=== PATIENT | female | born 1970 | race Two or more races ===

== ENCOUNTER 2025-04-28 17:48 | Inpatient (IN) | payer MEDICAID, OTHER ==
[~2025-04-28] VITALS: Ht 154.9 cm; Wt 70.8 kg
--- NOTE | 2025-04-28 18:55 | ED.PDOC ---
History of Present Illness HPI Comments 54-year-old female who is Vietnamese-speaking presents to the ER with family member who translates and with a prior surgical history of colostomy on January 01, 2025 due from diverticulitis, cholecystectomy, , tubal ligation, bilateral hand surgery in the chief complaint of abdominal pain. Family member reports on having had 9/10 abdominal pain around the colostomy bag associated with back pain, chills and nausea. Family member notes on going to [facility] for similar symptoms on Sunday of 04/25/2025. Denies any other symptoms at this time. Denies fever, /V/D, SOB, CP. No other associated symptoms, modifiers, recent injuries or sick contacts present at this time. Chief Complaint: Abdominal Pain Time Seen by MD: 18:45 Reviewed Notes: Nurses Notes, Medications, Allergies Allergies: Coded Allergies: NO KNOWN ALLERGIES (Unverified , 04/28/25) Information Source: Patient, Relative Mode of Arrival: Ambulatory Severity: Moderate Timing: Came on: Gradually Duration: Since onset Prehospital treatment: None Past Medical History PAST MEDICAL HISTORY: Denies Surgical History: Cholecystectomy, Tubal Ligation Surgical History (Other): Colostomy bag placed on January 01, 2025 due from diverticulitis OIL FIELD PUMPER History: No Pertinent OIL FIELD PUMPER History Family History Family History: Reviewed,noncontributory to illness, Unknown Social History Smoker: Non-Smoker Alcohol: Denies ETOH Use Drugs: Denies Drug Use Lives In: Home Constitutional: reports: chills; denies: diaphoresis, fatigue, fever, malaise, sweats, weakness, others EENTM: denies: blurred vision, double vision, ear bleeding, ear discharge, ear drainage, ear pain, ear ringing, eye pain, eye redness, hearing loss, mouth pain, mouth swelling, nasal discharge, nose bleeding, nose congestion, nose pain, photophobia, tearing, throat pain, throat swelling, voice changes, others Respiratory: denies: cough, hemoptysis, orthopnea, SOB at rest, shortness of breath, SOB with excertion, stridor, wheezing, others Cardiovascular: denies: chest pain, dizzy spells, diaphoresis, Dyspnea on exertion, edema, irregular heart beat, left arm pain, lightheadedness, palpitations, PND, syncope, others Gastrointestinal: reports: abdominal pain, nausea; denies: abdomen distended, blood streaked bowels, constipated, diarrhea, dysphagia, difficulty swallowing, hematemesis, melena, poor appetite, poor fluid intake, rectal bleeding, rectal pain, vomiting, others Genitourinary: denies: abnormal vagina bleeding, burning, dyspareunia, dysuria, flank pain, frequency, hematuria, incontinence, pain, , vagina discharge, urgency, others Neurological: denies: dizziness, fainting, headache, left sided numbness, left sided weakness, numbness, paresthesia, pre-existing deficit, right sided numbness, right sided weakness, seizure, speech problems, tingling, tremors, weakness, others Musculoskeletal: denies: back pain, gout, joint pain, joint swelling, muscle pain, muscle stiffness, neck pain, others Integumetry: denies: bruises, change in color, change in hair/nails, dryness, laceration, lesions, lumps, rash, wounds, others Allergic/Immunocompromised: denies: Difficulty Healing, Frequent Infections, Hives, Itching, others Hematologic/Lymphatic: denies: anemia, blood clots, easy bleeding, easy br uising, swollen glands, others Endocrine: denies: excessive hunger, excessive sweating, excessive thirst, excessive urination, flushing, intolerance to cold, intolerance to heat, unexplained weight gain, unexplained weight loss, others Psychiatric: denies: anxiety, bipolar disorder, depression, hopeless, panic disorder, schizophrenia, sleepless, suicidal, others All Other Systems: Reviewed and Negative Physical Exam General Appearance: Moderate Distress HEENT: Normal ENT Inspection, Pharynx Normal, TMs Normal Neck: Full Range of Motion, Non-Tender, Normal, Normal Inspection Respiratory: Chest Non-Tender, Lungs Clear, No Accessory Muscle Use, No Respiratory Distress, Normal Breath Sounds Cardiovascular: No Edema, No JVD, No Murmur, No Gallop, Normal Peripheral Pulses, Regular Rate/Rhythm Breast Exam: Deferred Gastrointestinal: LLQ, No Organomegaly, No Pulsatile Mass, Normal Bowel Sounds, Soft, Tenderness, Other (Colostomy bag in place) Genitalia: Deferred Pelvic: Deferred Rectal: Deferred Extremities: No calf tenderness, Normal capillary refill, Normal inspection, Normal range of motion, Non-tender, No pedal edema Musculoskeletal : Apperance: Normal Neurologic: Alert, maker up folding II-XII nml as Tested, No Motor Deficits, Normal Affect, Normal Mood, No Sensory Deficits Cerebellar Function: Normal Reflexes: Normal Skin: Dry, Normal Color, Warm Lymphatic: No Adenopathy Was a procedure done? Was a procedure done?: No Differential Dx Considerations may include: Diverticulitis, generalized weakness, colitis, abdominal pain X-Ray, Labs, Meds, VS Vital Signs Date Time Temp Pulse Resp B/P (MAP) Pulse Ox O2 Delivery O2 Flow Rate FiO2 04/28/25 17:51 98.7 87 19 121/85 98 98.7 Lab Test 04/28/25 19:15 Range/Units White Blood Count 6.2 4.4-10.8 10^3/uL Red Blood Count 5.14 4.0-5.20 10^6/uL Hemoglobin 14.0 12.2-16.2 g/dL Hematocrit 42.0 36.0-46.0 % Mean Corpuscular Volume 81.8 80.0-100.0 fL Mean Corpuscular Hemoglobin 27.2 L 28.0-32.0 pg Mean Corpuscular Hemoglobin Concent 33.3 32.0-36.0 g/dL Red Cell Distribution Width 17.7 H 11.8-14.3 % Platelet Count 327 140-450 10^3/uL Mean Platelet Volume 7.5 6.9-10.8 fL Neutrophils (%) (Auto) 52.1 37.0-80.0 % Lymphocytes (%) (Auto) 36.8 10.0-50.0 % Monocytes (%) (Auto) 7.4 0.0-12.0 % Eosinophils (%) (Auto) 2.9 0.0-7.0 % Basophils (%) (Auto) 0.8 0.0-2.0 % Neutrophils # (Auto) 3.2 1.6-8.6 10 ^3/uL Lymphocytes # (Auto) 2.3 0.4-5.4 10 ^3/uL Monocytes # (Auto) 0.5 0-1.3 10 ^3/uL Eosinophils # (Auto) 0.2 0-0.8 10 ^3/uL Basophils # (Auto) 0 0-0.2 10 ^3/uL Nucleated Red Blood Cells 0.1 % Sodium Level 142 136-145 mmol/L Potassium Level 3.8 3.5-5.1 mmol/L Chloride Level 104 98-107 mmol/L Carbon Dioxide Level 30 20-31 mmol/L Anion Gap 8 5-15 Blood Urea Nitrogen 10 9-23 mg/dL Creatinine 0.57 0.550-1.02 mg/dL Glomerular Filtration Rate Calc 107 >90 mL/min BUN/Creatinine Ratio 17.5 10.0-20.0 Serum Glucose 104 74-106 mg/dL Calcium Level 9.4 8.7-10.4 mg/dL Total Bilirubin 0.3 0.2-1.0 mg/dL Aspartate Amino Transferase (AST) 23 13-40 U/L Alanine Aminotransferase (ALT) 14 7-40 U/L Alkaline Phosphatase 97 46-116 U/L Total Protein 7.4 5.7-8.2 g/dL Albumin 4.3 3.2-4.8 g/dL Lipase 46 12-53 U/L IMPRESSION: No acute abdominal or pelvic findings. Large left lower quadrant parastomal hernia with no obstruction or inflammatory changes. Radiation optimization: All CT scans at this facility use at least one of these dose optimization techniques: automated exposure control mA and/or kV adjustment per patient size (includes targeted exams where dose is matched to clinical indication) or iterative reconstruction. The patient is being admitted at this time. As a CBC and chemistry panel which are within normal limits The patient had an IV Hep-Lock established The patient was given morphine and Zofran for the pain Images Reviewed?: Images reviewed and evaluated by me Time of 1ST Reevaluation: 19:15 Reevaluation 1ST: Unchanged Patient Education/Counseling: Diagnosis, Treatment, Prognosis Family Education/Counseling: Diagnosis, Treatment, Prognosis SEPSIS Sepsis Screen Date sepsis recognized/suspect: Apr 28, 2025 Time Sepsis recognized/suspect: 1753 Recent Procedure: No On Antibiotic Therapy: No Respiratory Rate >20: No Heart Rate >90: No Temp<36 C (96.8 F) or >38.3 C: No SBP <90 or MAP <65 mmHG: No New Acute Mental Status Change: No Is the patient on CPAP, BIPAP,: No Physician Orders Urinalysis (04/28/25 18:48) Ct Ab Pel Wo Con-No Oral Or Iv (04/28/25 18:48) Heplock Iv (04/28/25 18:48) Vital Signs Date Time Temp Pulse Resp B/P (MAP) Pulse Ox O2 Delivery O2 Flow Rate FiO2 04/28/25 17:51 98.7 87 19 121/85 98 98.7 Laboratory Tests Test 04/28/25 19:15 White Blood Count 6.2 10^3/uL (4.4-10.8) Departure 1 Departure Time of Disposition: 20:34 Impression: Primary Impression: Intractable abdominal pain Disposition: ADMITTED INPATIENT Admit to: Med Surg Condition: Fair Critical Care Note Critical Care Time?: No Stability Stability form required: Yes Unstable for transfer: ED Physician Assesment (Clinical assesment) Heart Score Heart Score: Heart Score Response (Comments) Value History N/A 0 EKG N/A 0 Age N/A 0 Risk Factors N/A 0 Troponin N/A 0 Total 0 I personally scribed for ANUEL WILSON MD ([email or web address]) on 04/28/25 at 18:55. Electronically submitted by Ken Jimenez ([employer]). I personally scribed for ANUEL WILSON MD ([email or web address]) on 04/28/25 at 19:28. Electronically submitted by Kne Jimenez ([employer]). ANUEL WILSON MD Apr 28, 2025 18:55
--- NOTE | 2025-04-28 19:20 | DVH ---
Exam: CT CT AB PEL WO CON-NO ORAL OR IV History: pain Comparison Study: None Technique: Multidetector spiral CT of the abdomen was performed from lung bases to pubic symphysis. Imaging was performed without IV contrast. Axial, coronal and sagittal multiplanar reformats were obtained from the axial data set by the technologist. Radiation Dose : 1. Abdomen/Pelvis: CTDIvol 6.86 mGy, DLP 3347.61 mGy*cm. Findings: Evaluation of solid organs is limited due to lack of intravenous contrast use. Lung Bases: No acute or significant lung base finding. Normal heart size. No pleural or pericardial effusion. Liver: The liver is normal in size. No focal lesions. Gallbladder and Biliary Tree: Gallbladder is surgically absent. Spleen: Unremarkable Pancreas: The pancreas is grossly normal in appearance. Adrenal Glands: Unremarkable Kidneys: Kidneys are grossly normal without calculi or hydronephrosis. Bladder: Grossly unremarkable for degree of distention. Bowel: Large left lower quadrant parastomal hernia containing a few loops of nonobstructed small bowel. Left lower quadrant colostomy. Sigmoid remnant appears unremarkable. No obstruction. No inflammatory changes. Appendix is normal. Ascites: Absent Lymphadenopathy: No mesenteric, retroperitoneal or periportal lymphadenopathy. Abdominal Wall and Mesentery: Unremarkable. Vasculature: The visualized abdominal aorta is normal in size and caliber. Evaluation of abdominal and pelvic vessels is limited due to lack of intravenous contrast. Pelvic Organs: Unremarkable Musculoskeletal: No aggressive focal bony lesions, acute fractures or dislocation. IMPRESSION: No acute abdominal or pelvic findings. Large left lower quadrant parastomal hernia with no obstruction or inflammatory changes. Radiation optimization: All CT scans at this facility use at least one of these dose optimization techniques: automated exposure control mA and/or kV adjustment per patient size (includes targeted exams where dose is matched to clinical indication) or iterative reconstruction.
[2025-04-28 19:37] LABS: Hematocrit 42.0 % (36.0-46.0); Hemoglobin 14.0 g/dL (12.2-16.2); Mean Corpuscular Hemoglobin 27.2 pg (28.0-32.0); Mean Corpuscular Volume 81.8 fL (80.0-100.0); Nucleated Red Blood Cells % 0.1 %
[2025-04-28 19:59] LABS: Alanine Aminotransferase 14 U/L (7-40); Albumin 4.3 g/dL (3.2-4.8); Alkaline Phosphatase 97 U/L (46-116); Anion Gap 8 (5-15); BUN/Creatinine Ratio 17.5 (10.0-20.0); Blood Urea Nitrogen 10 mg/dL (9-23); Calcium 9.4 mg/dL (8.7-10.4); Carbon Dioxide 30 mmol/L (20-31); Chloride 104 mmol/L (98-107); Glucose 104 mg/dL (74-106); Lipase 46 U/L (12-53); Potassium 3.8 mmol/L (3.5-5.1); Sodium 142 mmol/L (136-145); Total Protein 7.4 g/dL (5.7-8.2)
[2025-04-28 20:06] LABS: Bilirubin, Total 0.3 mg/dL (0.2-1.0)
[2025-04-28] MEDS ORDERED: ONDANSETRON HCL 4 MG/2 ML VIAL IV PRN (20:30)
[2025-04-28] MEDS ORDERED: MORPHINE SULFATE INJ 2 MG/ml SYRG IV PRN (20:30)
--- NOTE | 2025-04-28 21:09 | DVHHPRES ---
History of Present Illness Resident Creating Document: CARLOS HAMILTON RESIDENT History of Present Illness This is a 54-year-old female with past medical history of GERD, colostomy January 01 2025 in [facility] due to complicated acute diverticulitis, cholecystectomy, , tubal ligation, bilateral hand surgery came to ER with a complaint of abdominal pain for 1 week which is worsen today. Abdominal pain initially in epigastric region then continuous pain in colostomy site which is 7/10 intensity, localized, no radiation, no aggravating or relieving factor. Patient went to [facility] last week and discharged with famotidine and omeprazole after lab and image done. Patient stated, changes colostomy bag daily and no constipation or blood mixed with stool noted. Abdominal pain associated with back pain and headache but no nausea, vomiting, dysuria, hematuria, fever or any other acute distress. Past medical history: colostomy January 01 2025 due from diverticulitis, cholecystectomy, , tubal ligation, bilateral hand surgery. Surgical history: As above Personal history: Denies any smoking, illicit drug use. Use ETOH occasionally Social history: Lives with family Allergy: No known allergy PCP: Kane Jennings([phone]) Home medication: Famotidine and omeprazole. Review of Systems Constitutional: Yes: Chills, Sweats, Malaise; No: Fever, Weakness, Other Eyes: No: Pain, Vision change, Conjunctivae inflammation, Eyelid inflammation, Other, Redness ENT: No: Ear pain, Ear discharge, Nose pain, Nose discharge, Nose congestion, Mouth pain, Mouth swelling, Throat pain, Throat swelling, Other Respiratory: No: Cough, Dry, Shortness of breath, SOB with excertion, Wheezing, Hemoptysis, Pleuritic Pain, Sputum, Wheezing, Other Cardiovascular: No: Chest Pain, Palpitations, Orthopnea, Paroxysmal Noc. Dyspnea, Edema, Lt Headedness, Other Gastrointestinal: Nausea; No: Vomiting, Abdominal Pain, Diarrhea, Constipation, Melena, Hematochezia, Other Genitourinary: No Dysuria, No Frequency, No Incontinence, No Hematuria, No Retention, No Other Musculoskeletal: back pain; No: other, neck pain, shoulder pain, arm pain, hand pain, leg pain, foot pain Skin: No: Rash, Lesions, Jaundice, Bruising, Other Neurological: No: Weakness, Numbness, Incoordination, Change in speech, Confusion, Seizures, Other Allergies: Coded Allergies: NO KNOWN ALLERGIES (Unverified , 04/28/25) Exam Vital Signs Vital Signs Date Time Temp Pulse Resp B/P (MAP) Pulse Ox O2 Delivery O2 Flow Rate FiO2 04/28/25 20:50 99.0 88 16 132/93 (106) 99 99.0 General Appearance: Alert, Oriented X3, Cooperative, mild distress HEENT: Atraumatic, PERRLA, EOMI, Mucous membr. moist/pink Respiratory: Clear to auscultation, Normal air movement Cardiovascular: Regular rate, Normal S1, Normal S2, No murmurs Abdominal: Normal bowel sounds, Soft, Other (Abdomen tender on deep palpation, colostomy bag in place.) Extremities: No clubbing, No cyanosis, No edema, Normal pulses Skin: No rashes, No breakdown Neuro: Normal gait, Normal speech, Strength at 5/5 X4 ext, Sensation intact, Cranial nerves 3-12 NL Labs/Xrays Labs Test 04/28/25 19:15 Range/Units White Blood Count 6.2 4.4-10.8 10^3/uL Red Blood Count 5.14 4.0-5.20 10^6/uL Hemoglobin 14.0 12.2-16.2 g/dL Hematocrit 42.0 36.0-46.0 % Mean Corpuscular Volume 81.8 80.0-100.0 fL Mean Corpuscular Hemoglobin 27.2 L 28.0-32.0 pg Mean Corpuscular Hemoglobin Concent 33.3 32.0-36.0 g/dL Red Cell Distribution Width 17.7 H 11.8-14.3 % Platelet Count 327 140-450 10^3/uL Mean Platelet Volume 7.5 6.9-10.8 fL Neutrophils (%) (Auto) 52.1 37.0-80.0 % Lymphocytes (%) (Auto) 36.8 10.0-50.0 % Monocytes (%) (Auto) 7.4 0.0-12.0 % Eosinophils (%) (Auto) 2.9 0.0-7.0 % Basophils (%) (Auto) 0.8 0.0-2.0 % Neutrophils # (Auto) 3.2 1.6-8.6 10 ^3/uL Lymphocytes # (Auto) 2.3 0.4-5.4 10 ^3/uL Monocytes # (Auto) 0.5 0-1.3 10 ^3/uL Eosinophils # (Auto) 0.2 0-0.8 10 ^3/uL Basophils # (Auto) 0 0-0.2 10 ^3/uL Nucleated Red Blood Cells 0.1 % Sodium Level 142 136-145 mmol/L Potassium Level 3.8 3.5-5.1 mmol/L Chloride Level 104 98-107 mmol/L Carbon Dioxide Level 30 20-31 mmol/L Anion Gap 8 5-15 Blood Urea Nitrogen 10 9-23 mg/dL Creatinine 0.57 0.550-1.02 mg/dL Glomerular Filtration Rate Calc 107 >90 mL/min BUN/Creatinine Ratio 17.5 10.0-20.0 Serum Glucose 104 74-106 mg/dL Calcium Level 9.4 8.7-10.4 mg/dL Total Bilirubin 0.3 0.2-1.0 mg/dL Aspartate Amino Transferase (AST) 23 13-40 U/L Alanine Aminotransferase (ALT) 14 7-40 U/L Alkaline Phosphatase 97 46-116 U/L Total Protein 7.4 5.7-8.2 g/dL Albumin 4.3 3.2-4.8 g/dL Lipase 46 12-53 U/L SEPSIS Sepsis Screen Date sepsis recognized/suspect: Apr 28, 2025 Time Sepsis recognized/suspect: 1753 Recent Procedure: No On Antibiotic Therapy: No Respiratory Rate >20: No Heart Rate >90: No Temp<36 C (96.8 F) or >38.3 C: No SBP <90 or MAP <65 mmHG: No New Acute Mental Status Change: No Is the patient on CPAP, BIPAP,: No Physician Orders Urinalysis (04/28/25 18:48) Ct Ab Pel Wo Con-No Oral Or Iv (04/28/25 18:48) Heplock Iv (04/28/25 18:48) Admit (04/28/25 20:25) Code Status (04/28/25 20:25) 0.9% Ns 1000 Ml (04/28/25 20:30) Enoxaparin Sodium (Lovenox) (04/29/25 10:00) Npo (Nothing By Mouth) Diet (04/29/25 Breakfast) Morphine Sulfate Injection (04/28/25 20:30) Notify Of Changes From Base (04/28/25 20:25) Electrocardigram (04/28/25 20:25) Pantoprazole (Protonix) (04/29/25 10:00) Ondansetron Hcl (Zofran) (04/28/25 20:30) Vital Signs Date Time Temp Pulse Resp B/P (MAP) Pulse Ox O2 Delivery O2 Flow Rate FiO2 04/28/25 20:50 99.0 88 16 132/93 (106) 99 99.0 04/28/25 17:51 98.7 87 19 121/85 98 98.7 Laboratory Tests Test 04/28/25 19:15 White Blood Count 6.2 10^3/uL (4.4-10.8) Assessment/Plan Assessment/Plan Intractable abdominal pain possible bowel obstruction History of colostomy January 01, 2025 due to complicated diverticulitis Large left lower quadrant parastomal hernia CT abdomen without contrast: Large left lower quadrant parastomal hernia containing a few loops of nonobstructed small bowel. Left lower quadrant colostomy. Sigmoid remnant appears unremarkable. No obstruction. No inflammatory changes. Appendix is normal. CXR no cardiopulmonary dx. Lipase: 46 NPO IVF Pantoprazole IV pain medicine IV antiemetic Surgery consult as primary team. Advanced diet if patient condition improved GERD Home medication omeprazole and famotidine Diet: NPO, advanced accordingly GI prophylaxis: Pantoprazole DVT prophylaxis: Lovenox [employer] 29 minute spent with patient. Goals of care discussions. Full code status Mya Morris (daughter)-NOK in bedside and worked as a trading analyst. Case discussed with Dr. Naranjo. Plan discussed with: Patient, Daughter (Mya Morris), Other (Nurse) My Orders Orders - CARLOS HAMILTON RESIDENT Procedure Category Date Status Time Admit ADMIT 04/28/25 Transmitted 20:25 Code Status CODE 04/28/25 Transmitted 20:25 0.9% Ns 1000 Ml PHA 04/28/25 Transmitted 20:30 Enoxaparin Sodium PHA 04/29/25 Transmitted (Lovenox) 10:00 Npo (Nothing By DIET 04/29/25 Transmitted Mouth) Diet Breakfast Morphine Sulfate PHA 04/28/25 Transmitted Injection 20:30 Notify Of Changes NITO 04/28/25 Transmitted From Base 20:25 Electrocardigram EKG 04/28/25 Transmitted 20:25 Pantoprazole PHA 04/29/25 Transmitted (Protonix) 10:00 Ondansetron Hcl PHA 04/28/25 Transmitted (Zofran) 20:30 Date of Service: Apr 28, 2025 Billing Provider: JENNIFER NARANJO MD Common Visit Codes: 09328-EVJPWUE INP/OBS CARE (HIGH) Secondary Visit Codes: 61468-[id number] CARE PLAN 30 MINUTES CARLOS HAMILTON RESIDENT Apr 28, 2025 21:09
[2025-04-28 21:52] LABS: INR 1.02 (0.9-1.15); Partial Thromboplastin Time 27.9 SEC (24.5-34.5); Prothrombin Time 10.8 sec (9.3-11.8)
[2025-04-28] MEDS: SODIUM CHLORIDE 0.9% 1,000 ML IV SCH (22:58)
--- NOTE | 2025-04-28 23:15 | DVH ---
EXAM: XY CHEST PORTABLE CLINICAL HISTORY: sob TECHNIQUE: Single AP view of the chest WID: COMPARISON: None FINDINGS: Lines and tubes: Cholecystectomy clips are seen. Chest: The heart size and pulmonary vasculature is within normal limits. No pleural effusion, pneumothorax, or consolidation. Linear scarring or atelectasis in the left lung base. The osseous structures are grossly intact. Multilevel thoracic spondylosis. IMPRESSION: 1. No acute cardiopulmonary abnormality.
[2025-04-29] VITALS (7 sets, daily range): BP systolic 98–125; BP diastolic 56–78; PULSE 65–85; RESP 14–18; TEMP 97.5–98.1; O2SAT 94–99
[2025-04-29] MEDS: MORPHINE SULFATE 4 MG/ML SYR/VIAL IV PRN (00:37)
[2025-04-29 05:34] LABS: Hemoglobin 13.7 g/dL (12.2-16.2); Mean Corpuscular Hemoglobin 26.7 pg (28.0-32.0)
[2025-04-29 05:37] LABS: Hematocrit 41.9 % (36.0-46.0); Mean Corpuscular Volume 82.1 fL (80.0-100.0); Nucleated Red Blood Cells % 0.2 %
[2025-04-29 05:41] LABS: Anion Gap 6 (5-15); Carbon Dioxide 30 mmol/L (20-31); Potassium 4.1 mmol/L (3.5-5.1); Sodium 144 mmol/L (136-145)
[2025-04-29 05:42] LABS: Calcium 9.1 mg/dL (8.7-10.4)
[2025-04-29 05:47] LABS: BUN/Creatinine Ratio 14.1 (10.0-20.0); Blood Urea Nitrogen 9 mg/dL (9-23); Glucose 97 mg/dL (74-106); Triglycerides 74 mg/dL (< 150)
[2025-04-29 05:49] LABS: Cholesterol 154 mg/dL (< 200)
[2025-04-29 05:52] LABS: Chloride 108 mmol/L (98-107); HDL Cholesterol 63 mg/dL (40-59)
--- NOTE | 2025-04-29 10:16 | DVHPNRES ---
Progress Note Date Seen: Apr 29, 2025 Resident Creating Document: BLAZE VALERIO RESIDENT Medical Necessity Reason Pt with a Central, PICC or Fol: No Subjective Review of Systems This is a 54-year-old female with past medical history of GERD, colostomy January 01 2025 in [facility] due to complicated acute diverticulitis, cholecystectomy, , tubal ligation, bilateral hand surgery came to ER with a complaint of abdominal pain for 1 week which is worsen today. Abdominal pain initially in epigastric region then continuous pain in colostomy site which is 7/10 intensity, localized, no radiation, no aggravating or relieving factor. Patient went to [facility] last week and discharged with famotidine and omeprazole after lab and image done. Patient stated, changes colostomy bag daily and no constipation or blood mixed with stool noted. Abdominal pain associated with back pain and headache but no nausea, vomiting, dysuria, hematuria, fever or any other acute distress. CT abdomen and pelvis revealed-No acute abdominal or pelvic findings. Large left lower quadrant parastomal hernia with no obstruction or inflammatory changes. CXR- No acute cardiopulmonary abnormality. Past medical history: colostomy January 01 2025 due from diverticulitis, cholecystectomy, , tubal ligation, bilateral hand surgery. Surgical history: As above Personal history: Denies any smoking, illicit drug use. Use ETOH occasionally Social history: Lives with family Allergy: No known allergy PCP: Kane Jennings([phone]) Home medication: Famotidine and omeprazole Review of other system Patient was seen today at the bedside. Patient Cardiovascular- deny acute chest pain or shortness of breath or cough or palpitation Respiratory denies cough or short of breath or wheezing Gastrointestinal- abdominal pain, nausea Musculoskeletal-denies acute joint swelling or tenderness or redness Neurological- denies acute dysarthria, dysphagia, change in vision Psychiatry- denies depression or SI or HI Skin- denies acute rash or purpura Patient is seen today at bedside, labs and chart reviewed. Patient reported pain is improving. CT abdomen and pelvis revealed-No acute abdominal or pelvic findings. Large left lower quadrant parastomal hernia with no obstruction or inflammatory changes. Patient was put on clear liquid diet, ordered surgery consult for further evaluation and care. Objective vital signs Vital Sign Date Time Temp Pulse Resp B/P (MAP) Pulse Ox O2 Delivery O2 Flow Rate FiO2 11/26/25 08:30 97.6 69 14 98/56 (70) 94 97.6 04/29/25 00:00 Room Air* 0 21 medications Current Medications Medications Dose Ordered Sig/Elisha Route Start Time Stop Time Status Last Admin Dose Admin Sodium Chloride 1,000 ml @ 100 mls/hr Q10H IV 04/28/25 20:30 04/28/25 22:58 100 MLS/HR Enoxaparin Sodium 40 mg DAILY SC 04/29/25 10:00 Pantoprazole Sodium 40 mg DAILY IV 04/29/25 10:00 Ondansetron HCl 4 mg Q6HPRN PRN IV 04/28/25 20:30 Morphine Sulfate 2 mg Q4HPRN PRN IV 04/29/25 00:45 04/29/25 00:37 2 MG Examination General examination- awake, alert, oriented HEENT- PEERLA, no acute nasal discharge Cardiovascular- S1-S2 audible, rate and rhythm regular, no murmur Respiratory- CTAB, no wheeze or rhonchi Gastrointestinal-abdominal scar present, colostomy bag present, mild tenderness around the colostomy bag on palpation, also at the left upper quadrant tenderness positive, bowel sound+. Nondistended Musculoskeletal-no acute joint swelling or tenderness or redness Lower extremity- no leg edema Neurological- cranial nerves intact, no acute dysarthria or dysphagia Psychiatry- denies depression or SI or HI Skin- no acute rash or purpura laboratory and microbiology Laboratory Tests 04/29/25 05:05 Test 04/29/25 05:05 Range/Units Serum Glucose 97 74-106 mg/dL Problem List/Assessment/Plan Problem List/Assessment/Plan Assessment/Plan #Intractable abdominal pain with nausea likely due to colitis/ possible bowel obstruction # status post colostomy due to acute complicated diverticulitis # parastomal hernia -WBC 6.2. -History of colostomy January 01, 2025 due to complicated diverticulitis CT abdomen without contrast: Large left lower quadrant parastomal hernia containing a few loops of nonobstructed small bowel. Left lower quadrant colostomy. Sigmoid remnant appears unremarkable. No obstruction. No inflammatory changes. Appendix is normal. -ordered surgery consult for further evaluation and care -continue IV fluid as prescribed -monitor vitals -clear liquid diet #GERD -continue pantoprazole as prescribed Goals of care, Code status full code ; discussed with >15 minutes PUD prophylaxis: Pantoprazole DVT prophylaxis: Lovenox Plan discussed with Dr. Clancy , nursing staff, RN Total time spent on patient evaluation, chart review, assessment and plan, discussion discussion >35 minutes Plan discussed with: Patient, Other (RN) My Orders My Orders Orders - BLAZE VALERIO Procedure Category Date Status Time * Bonus Clerk CONS 04/29/25 Transmitted Consult Date of Service: Apr 29, 2025 Billing Provider: TY CLANCY MD Common Visit Codes: [id number] INP/OBS CARE(HIGH) BLAZE VALERIO Apr 29, 2025 10:16
[2025-04-29] MEDS: ENOXAPARIN SOD 40 MG/0.4 ML SYRINGE SC SCH (10:18)
[2025-04-29] MEDS: PANTOPRAZOLE 40 MG/10 ML VIAL INJ IV SCH (10:18)
[2025-04-30] VITALS (7 sets, daily range): BP systolic 101–124; BP diastolic 68–83; PULSE 65–86; RESP 15–18; TEMP 97.2–98.4; O2SAT 93–98
[2025-04-30 06:05] LABS: Anion Gap 9 (5-15); Carbon Dioxide 27 mmol/L (20-31); Potassium 3.6 mmol/L (3.5-5.1); Sodium 144 mmol/L (136-145)
[2025-04-30] MEDS: PANTOPRAZOLE 40 MG TAB PO SCH (06:07)
[2025-04-30 06:10] LABS: Calcium 8.6 mg/dL (8.7-10.4); Chloride 108 mmol/L (98-107)
[2025-04-30 06:11] LABS: Glucose 86 mg/dL (74-106); Magnesium 1.8 mg/dL (1.6-2.6)
[2025-04-30 06:13] LABS: BUN/Creatinine Ratio 8.8 (10.0-20.0); Blood Urea Nitrogen < 5 mg/dL (9-23)
--- NOTE | 2025-04-30 11:14 | DVHINCON2 ---
Date of service: Apr 30, 2025 Family History: Patient reports no known family medical history. Allergies: Coded Allergies: NO KNOWN ALLERGIES (Unverified , 04/28/25) Current Medications Current Medications Medications (Trade) Dose Ordered Sig/Elisha Route PRN Reason Start Time Stop Time Status Last Admin Pantoprazole Sodium (Protonix Tablet) 40 mg DAILY@0600 PO 04/30/25 06:00 04/30/25 06:07 Vital Signs Vital Signs Date Time Temp Pulse Resp B/P (MAP) Pulse Ox O2 Delivery O2 Flow Rate FiO2 04/30/25 04:01 98.2 66 15 101/68 (79) 93 98.2 04/29/25 20:00 Room Air* 0 21 Labs/Diagnostic Data Labs Test 04/30/25 05:25 04/29/25 05:05 04/28/25 19:15 Range/Units Sodium Level 144 136-145 mmol/L Potassium Level 3.6 3.5-5.1 mmol/L Chloride Level 108 H 98-107 mmol/L Carbon Dioxide Level 27 20-31 mmol/L Anion Gap 9 5-15 Blood Urea Nitrogen < 5 L 9-23 mg/dL Creatinine 0.57 0.550-1.02 mg/dL Glomerular Filtration Rate Calc 107 >90 mL/min BUN/Creatinine Ratio 8.8 L 10.0-20.0 Serum Glucose 86 74-106 mg/dL Calcium Level 8.6 L 8.7-10.4 mg/dL Magnesium Level 1.8 1.6-2.6 mg/dL White Blood Count 6.4 4.4-10.8 10^3/uL Red Blood Count 5.11 4.0-5.20 10^6/uL Hemoglobin 13.7 12.2-16.2 g/dL Hematocrit 41.9 36.0-46.0 % Mean Corpuscular Volume 82.1 80.0-100.0 fL Mean Corpuscular Hemoglobin 26.7 L 28.0-32.0 pg Mean Corpuscular Hemoglobin Concent 32.6 32.0-36.0 g/dL Red Cell Distribution Width 17.6 H 11.8-14.3 % Platelet Count 311 140-450 10^3/uL Mean Platelet Volume 7.5 6.9-10.8 fL Neutrophils (%) (Auto) 54.1 37.0-80.0 % Lymphocytes (%) (Auto) 33.6 10.0-50.0 % Monocytes (%) (Auto) 7.6 0.0-12.0 % Eosinophils (%) (Auto) 3.6 0.0-7.0 % Basophils (%) (Auto) 1.1 0.0-2.0 % Neutrophils # (Auto) 3.5 1.6-8.6 10 ^3/uL Lymphocytes # (Auto) 2.2 0.4-5.4 10 ^3/uL Monocytes # (Auto) 0.5 0-1.3 10 ^3/uL Eosinophils # (Auto) 0.2 0-0.8 10 ^3/uL Basophils # (Auto) 0.1 0-0.2 10 ^3/uL Nucleated Red Blood Cells 0.2 % Triglycerides Level 74 < 150 mg/dL Cholesterol Level 154 < 200 mg/dL LDL Cholesterol 78 < 100 mg/dL HDL Cholesterol 63 H 40-59 mg/dL Vitamin B12 Level 639 211-911 pg/mL Vitamin D 25-Hydroxy 42.8 30.0-100 ng/mL Thyroid Stimulating Hormone (TSH) 1.07 0.55-4.78 uIU/mL Prothrombin Time 10.8 9.3-11.8 sec Prothrombin Time INR 1.02 0.9-1.15 Activated Partial Thromboplast Time 27.9 24.5-34.5 SEC Hemoglobin A1c 6.0 H <5.7 % A1C Total Bilirubin 0.3 0.2-1.0 mg/dL Aspartate Amino Transferase (AST) 23 13-40 U/L Alanine Aminotransferase (ALT) 14 7-40 U/L Alkaline Phosphatase 97 46-116 U/L Total Protein 7.4 5.7-8.2 g/dL Albumin 4.3 3.2-4.8 g/dL Lipase 46 12-53 U/L Microbiology Date/Time Source Procedure Growth Status 04/29/25 00:20 Nose MRSA Screen - Final Complete Assessment [id number] ABD PAIN NOW RESOLVED COLOSTOMY STATUS POSSIBLE PARACOLOSTOMY HERNIA, NON STRANGULATED COLOSTOMY FUNCTIONAL, VIABLE NO INDICATION FOR EMERGENT SURGERY ADVANCE DIET ISIS ABD BINDER CLEARED FOR DISCHARGE NURSE AT BEDSIDE Plan discussed with: Patient, Other LUIS FERNANDO STRONG MD Apr 30, 2025 11:14
--- NOTE | 2025-04-30 11:25 | DVHINCON2 ---
DATE OF CONSULTATION: 04/30/2025 HISTORY OF PRESENT ILLNESS: A 54 years old coming in with abdominal pain. No nausea or vomiting. She has a functional left lower quadrant colostomy that was done in 12/2024 at [facility] due to complicated acute diverticulitis and she has a past history of cholecystectomy as well as , tubal ligation, and came to the emergency room with abdominal pain. No hematemesis or melena. No bleeding per rectum. PAST MEDICAL HISTORY: As mentioned above. PAST SURGICAL HISTORY: As mentioned above. PHYSICAL EXAMINATION: VITAL SIGNS: Afebrile. Stable signs. HEENT: No evidence of pallor, cyanosis or jaundice. NECK: Supple and nontender, with no thyromegaly or lymphadenopathy. CHEST AND LUNGS: Clear. HEART: Within normal limits. ABDOMEN: Soft, nontender. No rebound. The colostomy is functional, with no complications. On a CAT scan possibly there is a parastomal hernia that is reducible, with no complications, no incarceration or strangulation. EXTREMITIES: Unremarkable. NEUROLOGIC: Not assessed. CLINICAL IMPRESSION: Functional colostomy. PLAN: To manage her conservatively, advance her diet, and she is cleared for discharge and consider colostomy reversal based upon ongoing evaluation as an outpatient. Tanner Awad MD RG/RAVINDRA TID: [id number] RECEIPT: [id number] cc: Guanako Clancy MD
[2025-04-30] MEDS ORDERED: HYDROcodone-ACET 5/325MG TAB PO PRN (11:45)
--- NOTE | 2025-04-30 13:27 | DVHPNRES ---
Progress Note Date Seen: Apr 30, 2025 Resident Creating Document: BLAZE VALERIO RESIDENT Medical Necessity Reason Pt with a Central, PICC or Fol: No Subjective Review of Systems This is a 54-year-old female with past medical history of GERD, colostomy January 01 2025 in [facility] due to complicated acute diverticulitis, cholecystectomy, , tubal ligation, bilateral hand surgery came to ER with a complaint of abdominal pain for 1 week which is worsen today. Abdominal pain initially in epigastric region then continuous pain in colostomy site which is 7/10 intensity, localized, no radiation, no aggravating or relieving factor. Patient went to [facility] last week and discharged with famotidine and omeprazole after lab and image done. Patient stated, changes colostomy bag daily and no constipation or blood mixed with stool noted. Abdominal pain associated with back pain and headache but no nausea, vomiting, dysuria, hematuria, fever or any other acute distress. CT abdomen and pelvis revealed-No acute abdominal or pelvic findings. Large left lower quadrant parastomal hernia with no obstruction or inflammatory changes. CXR- No acute cardiopulmonary abnormality. Past medical history: colostomy January 01 2025 due from diverticulitis, cholecystectomy, , tubal ligation, bilateral hand surgery. Surgical history: As above Personal history: Denies any smoking, illicit drug use. Use ETOH occasionally Social history: Lives with family Allergy: No known allergy PCP: Kane Jennings([phone]) Home medication: Famotidine and omeprazole Review of other system Patient was seen today at the bedside. Patient Cardiovascular- deny acute chest pain or shortness of breath or cough or palpitation Respiratory denies cough or short of breath or wheezing Gastrointestinal- abdominal pain, nausea Musculoskeletal-denies acute joint swelling or tenderness or redness Neurological- denies acute dysarthria, dysphagia, change in vision Psychiatry- denies depression or SI or HI Skin- denies acute rash or purpura Patient is seen today at bedside, labs and chart reviewed. Abdominal pain improving. Patient was seen by surgery Dr. ivon Awad, recommended to advance diet as tolerated, no surgical intervention at this moment. Abdominal binder Objective vital signs Vital Sign Date Time Temp Pulse Resp B/P (MAP) Pulse Ox O2 Delivery O2 Flow Rate FiO2 04/30/25 12:44 98.3 65 18 110/74 (86) 98 98.3 04/30/25 08:00 Room Air* 0 21 Total Intake and Output 04/29/25 04/29/25 04/30/25 15:00 23:00 07:00 Intake Total 200 ml 1550 ml Output Total 0 ml Balance 200 ml 1550 ml medications Current Medications Medications Dose Ordered Sig/Elisha Route Start Time Stop Time Status Last Admin Dose Admin Sodium Chloride 1,000 ml @ 100 mls/hr Q10H IV 04/28/25 20:30 04/30/25 02:37 100 MLS/HR Enoxaparin Sodium 40 mg DAILY SC 04/29/25 10:00 04/30/25 10:38 40 MG Ondansetron HCl 4 mg Q6HPRN PRN IV 04/28/25 20:30 Morphine Sulfate 2 mg Q4HPRN PRN IV 04/29/25 00:45 04/29/25 00:37 2 MG Pantoprazole Sodium 40 mg DAILY@0600 PO 04/30/25 06:00 04/30/25 06:07 40 MG Acetaminophen/ Hydrocodone Bitart 1 tab Q4HPRN PRN PO 04/30/25 11:45 Examination General examination- awake, alert, oriented HEENT- PEERLA, no acute nasal discharge Cardiovascular- S1-S2 audible, rate and rhythm regular, no murmur Respiratory- CTAB, no wheeze or rhonchi Gastrointestinal-abdominal scar present, colostomy bag present, mild tenderness around the colostomy bag on palpation, also at the left upper quadrant tenderness positive, bowel sound+. Nondistended Musculoskeletal-no acute joint swelling or tenderness or redness Lower extremity- no leg edema Neurological- cranial nerves intact, no acute dysarthria or dysphagia Psychiatry- denies depression or SI or HI Skin- no acute rash or purpura laboratory and microbiology Laboratory Tests 04/30/25 05:25 04/29/25 05:05 Test 04/30/25 05:25 Range/Units Serum Glucose 86 74-106 mg/dL Microbiology Date/Time Source Procedure Growth Status 04/29/25 00:20 Nose MRSA Screen - Final Complete Problem List/Assessment/Plan Problem List/Assessment/Plan Assessment/Plan #Intractable abdominal pain with nausea likely due to colitis/ possible bowel obstruction # status post colostomy due to acute complicated diverticulitis # parastomal hernia -WBC 6.2. -History of colostomy January 01, 2025 due to complicated diverticulitis CT abdomen without contrast: Large left lower quadrant parastomal hernia containing a few loops of nonobstructed small bowel. Left lower quadrant colostomy. Sigmoid remnant appears unremarkable. No obstruction. No inflammatory changes. Appendix is normal. -surgery recommended for advancing diet as tolerated, no surgical recommendation at this moment, abdominal binder -continue IV fluid as prescribed -monitor vitals Advance diet as tolerated - as per Dr. Awad Patient has a scheduled for colonoscopy in July, #GERD -continue pantoprazole as prescribed Goals of care, Code status full code ; discussed with >15 minutes PUD prophylaxis: Pantoprazole DVT prophylaxis: Lovenox Plan discussed with Dr. Clancy , nursing staff, RN Total time spent on patient evaluation, chart review, assessment and plan, discussion discussion >35 minutes Plan discussed with: Patient, Other (RN) My Orders My Orders Orders - BLAZE VALERIO Procedure Category Date Status Time Pantoprazole Tablet PHA 04/30/25 In Process (Protonix Tablet) 06:00 Date of Service: Apr 30, 2025 Billing Provider: TY CLANCY MD Common Visit Codes: [id number] INP/OBS CARE(HIGH) BLAZE VALERIO Apr 30, 2025 13:27
[2025-04-30] MEDS: MAGNESIUM SULFATE 1GM/100ML 100 ML IV ONE (14:00)
[2025-04-30] MEDS: DICYCLOMINE HCL 10 MG CAP PO ONE (15:45)
[2025-04-30] MEDS: ACETAMINOPHEN 325 MG TAB PO ONE (22:25)
[2025-05-01 01:00] VITALS: BP 111/75; PULSE 67; RESP 18; TEMP 97.7; O2SAT 94
[2025-05-01 05:00] VITALS: BP 115/76; PULSE 61; RESP 18; TEMP 97.1; O2SAT 96
[2025-05-01 06:07] LABS: Anion Gap 9 (5-15); Calcium 8.7 mg/dL (8.7-10.4); Carbon Dioxide 28 mmol/L (20-31); Chloride 106 mmol/L (98-107); Sodium 143 mmol/L (136-145)
[2025-05-01 06:08] LABS: Potassium 3.3 mmol/L (3.5-5.1)
[2025-05-01 06:13] LABS: Glucose 88 mg/dL (74-106)
[2025-05-01 06:14] LABS: BUN/Creatinine Ratio 10.4 (10.0-20.0); Blood Urea Nitrogen < 5 mg/dL (9-23); Magnesium 2.0 mg/dL (1.6-2.6)
[2025-05-01] MEDS: POTASSIUM CHL 20 Meq TABLET PO ONE (06:56)
--- NOTE | 2025-05-01 10:29 | DVHPN2 ---
Progress Note Date Seen: May 01, 2025 Medical Necessity Reason Pt with a Central, PICC or Fol: No Objective vital signs Vital Sign Date Time Temp Pulse Resp B/P (MAP) Pulse Ox O2 Delivery O2 Flow Rate FiO2 05/01/25 05:00 97.1 61 18 115/76 (89) 96 97.1 04/30/25 20:00 Room Air* 0 21 Total Intake and Output 04/30/25 04/30/25 05/01/25 15:00 23:00 07:00 Intake Total 100 ml 900 ml 1400 ml Balance 100 ml 900 ml 1400 ml medications Current Medications Medications Dose Ordered Sig/Elisha Route Start Time Stop Time Status Last Admin Dose Admin Sodium Chloride 1,000 ml @ 100 mls/hr Q10H IV 04/28/25 20:30 05/01/25 00:36 100 MLS/HR Enoxaparin Sodium 40 mg DAILY SC 04/29/25 10:00 05/01/25 09:53 40 MG Ondansetron HCl 4 mg Q6HPRN PRN IV 04/28/25 20:30 Morphine Sulfate 2 mg Q4HPRN PRN IV 04/29/25 00:45 05/01/25 02:35 2 MG Pantoprazole Sodium 40 mg DAILY@0600 PO 04/30/25 06:00 05/01/25 06:27 40 MG Acetaminophen/ Hydrocodone Bitart 1 tab Q4HPRN PRN PO 04/30/25 11:45 laboratory and microbiology Laboratory Tests 05/01/25 05:15 04/29/25 05:05 Test 05/01/25 05:15 Range/Units Serum Glucose 88 74-106 mg/dL Microbiology Date/Time Source Procedure Growth Status 04/29/25 00:20 Nose MRSA Screen - Final Complete Problem List/Assessment/Plan Problem List/Assessment/Plan AFEBRILE VSS ABD SOFT COLOSTOMY FUNCTIONAL ISIS DIET CLEARED FOR DISCHARGE Plan discussed with: Other My Orders My Orders Orders - LUIS FERNANDO STRONG MD Procedure Category Date Status Time Hydrocodone-Acet PHA 04/30/25 In Process 5/325mg Tab ([place] 11:45 Soft Diet DIET 04/30/25 Transmitted Dinner LUIS FERNANDO STRONG MD May 01, 2025 10:29
--- NOTE | 2025-05-01 11:45 | DVHDSRES ---
Discharge Summary Date of Admission Resident Creating Document: BLAZE VALERIO RESIDENT Apr 28, 2025 at 20:25 Date of Discharge: May 01, 2025 Admitting Diagnosis Intractable abdominal pain Labs/Diagnostic Data: Laboratory Results Test 05/01/25 05:15 04/29/25 05:05 04/28/25 19:15 Sodium Level 143 mmol/L (136-145) Potassium Level 3.3 mmol/L (3.5-5.1) Chloride Level 106 mmol/L (98-107) Carbon Dioxide Level 28 mmol/L (20-31) Anion Gap 9 (5-15) Blood Urea Nitrogen < 5 mg/dL (9-23) Creatinine 0.48 mg/dL (0.550-1.02) Glomerular Filtration Rate Calc 111 mL/min (>90) BUN/Creatinine Ratio 10.4 (10.0-20.0) Serum Glucose 88 mg/dL (74-106) Calcium Level 8.7 mg/dL (8.7-10.4) Magnesium Level 2.0 mg/dL (1.6-2.6) White Blood Count 6.4 10^3/uL (4.4-10.8) Red Blood Count 5.11 10^6/uL (4.0-5.20) Hemoglobin 13.7 g/dL (12.2-16.2) Hematocrit 41.9 % (36.0-46.0) Mean Corpuscular Volume 82.1 fL (80.0-100.0) Mean Corpuscular Hemoglobin 26.7 pg (28.0-32.0) Mean Corpuscular Hemoglobin Concent 32.6 g/dL (32.0-36.0) Red Cell Distribution Width 17.6 % (11.8-14.3) Platelet Count 311 10^3/uL (140-450) Mean Platelet Volume 7.5 fL (6.9-10.8) Neutrophils (%) (Auto) 54.1 % (37.0-80.0) Lymphocytes (%) (Auto) 33.6 % (10.0-50.0) Monocytes (%) (Auto) 7.6 % (0.0-12.0) Eosinophils (%) (Auto) 3.6 % (0.0-7.0) Basophils (%) (Auto) 1.1 % (0.0-2.0) Neutrophils # (Auto) 3.5 10 ^3/uL (1.6-8.6) Lymphocytes # (Auto) 2.2 10 ^3/uL (0.4-5.4) Monocytes # (Auto) 0.5 10 ^3/uL (0-1.3) Eosinophils # (Auto) 0.2 10 ^3/uL (0-0.8) Basophils # (Auto) 0.1 10 ^3/uL (0-0.2) Nucleated Red Blood Cells 0.2 % Triglycerides Level 74 mg/dL (< 150) Cholesterol Level 154 mg/dL (< 200) LDL Cholesterol 78 mg/dL (< 100) HDL Cholesterol 63 mg/dL (40-59) Vitamin B12 Level 639 pg/mL (211-911) Vitamin D 25-Hydroxy 42.8 ng/mL (30.0-100) Thyroid Stimulating Hormone (TSH) 1.07 uIU/mL (0.55-4.78) Prothrombin Time 10.8 sec (9.3-11.8) Prothrombin Time INR 1.02 (0.9-1.15) Activated Partial Thromboplast Time 27.9 SEC (24.5-34.5) Hemoglobin A1c 6.0 % A1C (<5.7) Total Bilirubin 0.3 mg/dL (0.2-1.0) Aspartate Amino Transferase (AST) 23 U/L (13-40) Alanine Aminotransferase (ALT) 14 U/L (7-40) Alkaline Phosphatase 97 U/L (46-116) Total Protein 7.4 g/dL (5.7-8.2) Albumin 4.3 g/dL (3.2-4.8) Lipase 46 U/L (12-53) Other Laboratory Tests 05/01/25 05:15 04/29/25 05:05 Brief Hx & Hospital Course: This is a 54-year-old female with past medical history of GERD, colostomy January 01 2025 in [facility] due to complicated acute diverticulitis, cholecystectomy, , tubal ligation, bilateral hand surgery came to ER with a complaint of abdominal pain for 1 week which is worsen today. Abdominal pain initially in epigastric region then continuous pain in colostomy site which is 7/10 intensity, localized, no radiation, no aggravating or relieving factor. Patient went to [facility] last week and discharged with famotidine and omeprazole after lab and image done. Patient stated, changes colostomy bag daily and no constipation or blood mixed with stool noted. Abdominal pain associated with back pain and headache but no nausea, vomiting, dysuria, hematuria, fever or any other acute distress. CT abdomen and pelvis revealed-No acute abdominal or pelvic findings. Large left lower quadrant parastomal hernia with no obstruction or inflammatory changes. CXR- No acute cardiopulmonary abnormality. Patient was seen by surgery Dr. ivon Awad, recommended to advance diet as tolerated, no surgical intervention at this moment. Abdominal binder. Patient's pain improved. Patient was tolerating diet well. Patient is being discharged home in hemodynamically stable condition. Patient was advised to follow up with the discharge clinic, with the surgeon and also GI. General examination- awake, alert, oriented HEENT- PEERLA, no acute nasal discharge Cardiovascular- S1-S2 audible, rate and rhythm regular, no murmur Respiratory- CTAB, no wheeze or rhonchi Gastrointestinal-abdominal scar present, colostomy bag present, mild tenderness around the colostomy bag on palpation, also at the left upper quadrant tenderness positive, bowel sound+. Nondistended Musculoskeletal-no acute joint swelling or tenderness or redness Lower extremity- no leg edema Neurological- cranial nerves intact, no acute dysarthria or dysphagia Psychiatry- denies depression or SI or HI Skin- no acute rash or purpura Plan of care discussed with Dr. Clancy Consults/Reason for consult [place] [id number] Ph: [phone] DIAGNOSTIC IMAGING Diagnostic Imaging Report : [id number] Signed PATIENT: SANDIE GARCIAACCT: [id number] UNIT: [id number] : 1970 LOC: OVERFLOW ROOM / BED: [facility]-ER / A AGE / SEX: 54 / F ADM STATUS: ADM IN SERVICE 28 ORDERING PHYSICIAN: JORGE TRINH RESIDENT PROCEDURE(s): CXRP - CHEST PORTABLE REASON: sob ORDER NUMBER(s): [id number], ACCESSION NUMBER(s): [id number] EXAM: XY CHEST PORTABLE CLINICAL HISTORY: sob TECHNIQUE: Single AP view of the chest WID: COMPARISON: None FINDINGS: Lines and tubes: Cholecystectomy clips are seen. Chest: The heart size and pulmonary vasculature is within normal limits. No pleural effusion, pneumothorax, or consolidation. Linear scarring or atelectasis in the left lung base. The osseous structures are grossly intact. Multilevel thoracic spondylosis. IMPRESSION: 1. No acute cardiopulmonary abnormality. ATED BY: STANISLAV ORNELAS MD DICTATED DATE/TIME: 04/28/252312 SIGNED BY: STANISLAV ORNELAS MD SIGNED DATE/TIME: 04/28/252312 CC: Operations or Procedures [place] [address] Ph: [phone] DIAGNOSTIC IMAGING Diagnostic Imaging Report : [id number] Signed PATIENT: SANDIE GARCIAACCT: [id number] UNIT: [id number] : 1970 LOC: ER ROOM / BED: / AGE / SEX: 54 / F ADM STATUS: REG ER SERVICE 47 ORDERING PHYSICIAN: ANUEL WILSON MD PROCEDURE(s): ABPL - CT AB PEL WO CON-NO ORAL OR IV REASON: pain ORDER NUMBER(s): [id number], ACCESSION NUMBER(s): [id number] Exam: CT CT AB PEL WO CON-NO ORAL OR IV History: pain Comparison Study: None Technique: Multidetector spiral CT of the abdomen was performed from lung bases to pubic symphysis. Imaging was performed without IV contrast. Axial, coronal and sagittal multiplanar reformats were obtained from the axial data set by the technologist. Radiation Dose : 1. Abdomen/Pelvis: CTDIvol 6.86 mGy, DLP 3347.61 mGy*cm. Findings: Evaluation of solid organs is limited due to lack of intravenous contrast use. Lung Bases: No acute or significant lung base finding. Normal heart size. No pleural or pericardial effusion. Liver: The liver is normal in size. No focal lesions. Gallbladder and Biliary Tree: Gallbladder is surgically absent. Spleen: Unremarkable Pancreas: The pancreas is grossly normal in appearance. Adrenal Glands: Unremarkable Kidneys: Kidneys are grossly normal without calculi or hydronephrosis. Bladder: Grossly unremarkable for degree of distention. Bowel: Large left lower quadrant parastomal hernia containing a few loops of nonobstructed small bowel. Left lower quadrant colostomy. Sigmoid remnant appears unremarkable. No obstruction. No inflammatory changes. Appendix is normal. Ascites: Absent Lymphadenopathy: No mesenteric, retroperitoneal or periportal lymphadenopathy. Abdominal Wall and Mesentery: Unremarkable. Vasculature: The visualized abdominal aorta is normal in size and caliber. Evaluation of abdominal and pelvic vessels is limited due to lack of intravenous contrast. Pelvic Organs: Unremarkable Musculoskeletal: No aggressive focal bony lesions, acute fractures or dislocation. IMPRESSION: No acute abdominal or pelvic findings. Large left lower quadrant parastomal hernia with no obstruction or inflammatory changes. Radiation optimization: All CT scans at this facility use at least one of these dose optimization techniques: automated exposure control mA and/or kV adjustment per patient size (includes targeted exams where dose is matched to clinical indication) or iterative reconstruction. ATED BY: WHITNEY DISLA MD DICTATED DATE/TIME: 04/28/251917 SIGNED BY: WHITNEY DISLA MD SIGNED DATE/TIME: 04/28/251917 CC: [place] [address] Ph: [phone] DIAGNOSTIC IMAGING Diagnostic Imaging Report : [id number] Signed PATIENT: SANDIE GARCIAACCT: [id number] UNIT: [id number] : 1970 LOC: OVERFLOW ROOM / BED: [address] [place] [address] AGE / SEX: 54 / F ADM STATUS: ADM IN SERVICE 28 ORDERING PHYSICIAN: JORGE TRINH RESIDENT PROCEDURE(s): CXRP - CHEST PORTABLE REASON: sob ORDER NUMBER(s): [id number], ACCESSION NUMBER(s): [id number] EXAM: XY CHEST PORTABLE CLINICAL HISTORY: sob TECHNIQUE: Single AP view of the chest WID: COMPARISON: None FINDINGS: Lines and tubes: Cholecystectomy clips are seen. Chest: The heart size and pulmonary vasculature is within normal limits. No pleural effusion, pneumothorax, or consolidation. Linear scarring or atelectasis in the left lung base. The osseous structures are grossly intact. Multilevel thoracic spondylosis. IMPRESSION: 1. No acute cardiopulmonary abnormality. ATED BY: STANISLAV ORNELAS MD DICTATED DATE/TIME: 04/28/252312 SIGNED BY: STANISLAV ORNELAS MD SIGNED DATE/TIME: 04/28/252312 CC: Condition at Discharge: Stable Final Diagnosis/Problems List #Intractable abdominal pain with nausea likely due to ?colitisruled out bowel obstruction # status post colostomy due to acute complicated diverticulitis # parastomal hernia #GERD Discharge Disposition: Home Discharge Instruct/Medications Diet: Regular Activity: Light activity Activity comment: No heavy lifting Follow Up/Referral: DC clinic PCP Surgery [facility] Recesser Medications: As prescribed Scheduled Pantoprazole Sodium Sesquihydr (Pantoprazole Sodium), 40 MG PO DAILY Discharge Statement: "Patient was advised to return to the ER or call 911 if any headaches, dizziness, shortness of breath, chest pain, abdominal pain, bleeding, fevers, or worsening of medical condition. Patient was counseled about treatment plan, medications, possible side effects, patientverbalized understanding. All questions were answered to the best of my ability. This discharge took greater then 30 minutes in planning, reviewing documentation, counseling the patient, and discussing with other team members." ASSESSMENT ASSESSMENT Assessment Date of Service: May 01, 2025 Billing Provider: TY CLANCY MD Common Visit Codes: 44312-EUX/OBS DISCH DAY >30min BLAZE VALERIO RESIDENT May 01, 2025 11:45
[2025-05-01] MEDS ORDERED: PANT40T PO (11:56)
[2025-05-01 12:56] VITALS: BP 110/74; PULSE 71; RESP 18; TEMP 98.1; O2SAT 97
[2025-05-01 13:34] VITALS: TEMP 36.7
== END 2025-05-01 15:30 | disposition home or self-care (01) | DRG 249 ==
LOC: ER 17:48 → OVERFLOW 20:25 → EAST 04-29 17:42
PROVIDERS: ADMIT Internal Medicine Geriatric Medicine; ATTEND Internal Medicine Geriatric Medicine
DX: A08.4 Viral intestinal infection, unspecified (principal); K21.9 Gastro-esophageal reflux disease without esophagitis; K43.5 Parastomal hernia without obstruction or gangrene; Z93.3 Colostomy status; Z90.49 Acquired absence of other specified parts of digestive tract; Z98.51 Tubal ligation status; Z98.891 History of uterine scar from previous surgery; Z79.899 Other long term (current) drug therapy
CPT/HCPCS: 36415; 71045; 74176; 80048; 80053; 80061; 82306; 82607; 83036; 83690; 83735; 84443; 85025; 85610; 85730; 87081; G0378; J2470